=== PATIENT | female | born 1980 | race Caucasian/White ===

== ENCOUNTER → 2020-11-20 07:29 | Outpatient (CLI) | payer OTHER, SELFPAY ==
[2020-11-20 17:04] LABS: SARS-CoV-2 RNA PCR Negative
== END ==
PROVIDERS: PCP Family Medicine; Visit Provider Surgery
DX: Z01.812 Encounter for preprocedural laboratory examination (principal); Z20.822 Contact with and (suspected) exposure to COVID-19
CPT/HCPCS: C9803; U0003; U0005

== ENCOUNTER 2020-11-22 01:11 | Day surgery (SDC) | payer OTHER, SELFPAY ==
[2020-11-09 14:25] VITALS: BMI 29.0
--- NOTE | 2020-11-13 15:51 | PC.NURSE ---
Pt denies any changes in health history or medications since initial interview. New Covid date/time and pre-op instructions reviewed with pt. Pt denies any questions at this time.
--- NOTE | 2020-11-22 12:45 | WPDANESEPPF ---
Anes - Initial Pre Proc Eval Procedure: Operation Date: 11/22/20 14:30 Proposed Procedures p Excisional Biopsy of Right Lower Quadrant Back Mass Times Two - Aida Kendall MD Date/Time: 11/22/20 12:45 Surgeon: Aida Kendall MD Pre Op Diagnosis: right lower back mass x2 Patient Data Age: 40 Gender: F Height: 5 ft 6 in Weight: 81.65 kg Allergies Allergy/AdvReac Type Severity Reaction Status Date / Time Penicillins Allergy Intermediate Rash Verified 11/13/20 15:51 Home Medications Medication Instructions Recorded Confirmed Type fluoxetine 20 mg capsule 20 mg PO DAILY 11/07/20 11/13/20 History levonorgestrel 20 mcg/24 hours (6 1 device INTRAUTERINE ONCE 11/07/20 11/13/20 History yrs) 52 mg intrauterine device sumatriptan succinate 50 mg tablet 50 mg PO ONCE PRN 11/07/20 11/13/20 History Patient hx anesthesia problems: none Family hx anesthesia problems: none PMFSH Past Medical History Medical History Anxiety Depression Migraine Surgical History Surgical History History of breast implant History of colonoscopy Family History Family History Father Hypertension Mother Diabetes mellitus Hypertension Grandparent Carcinoma of colon Cerebrovascular accident Cancer of kidney Social History Social History Smoking status: Never smoker Alcohol intake: current Drinks per week: 3 Substance use: never Substance use type: does not use Living arrangements: with family Spiritual care concerns: No Anes - Eval Final PreProcedure Day of Procedure 11/22/20 12:45 Patient weight: overweight Heart: regular rate and rhythm Lungs: clear to auscultation Airway: Mallampati scale class II Neurological: alert and oriented Last oral intake: >/= 8 hours ASA classification: II Emergent: no Anesthetic plan: proceed Anesthesia type and monitoring: general GIVS and standard monitoring Informed Consent: The patient's anesthetic plan and its attendant risks and benefits were discussed with the patient/family/POA. Questions were solicited and answers provided to the satisfaction of the patient/family/POA.
--- NOTE | 2020-11-22 12:47 | WPDHPUPDATE1 ---
History and Physical Update Update Date/Time: 11/22/20 12:47 History and Physical has been reviewed, including an updated exam of the patient. There are NO changes in the patient's condition. Risks, benefits, and alternatives have been discussed and questions answered. Patient agrees to proceed with procedure.
[2020-11-22 13:00] VITALS: BP 118/81; PULSE 70; RESP 16; TEMP 36.9; O2SAT 100; BMI 29.2
[2020-11-22] MEDS: LACTATED RINGERS 1,000 ML 30 ML IV CONT (13:05)
[2020-11-22] MEDS: ceFAZolin 2 GM/D5W 50 ML 2 GM/50 ML BAG IVPB (13:55)
[2020-11-22] MEDS: BUPIVACAINE/EPINEPHRINE 0.5% 10 ML VIAL 50 ML INFILTRATE (14:28)
[2020-11-22] MEDS: KETOROLAC 30 MG/ML VIAL (*BKC) IV PUSH (14:30)
--- NOTE | 2020-11-22 14:36 | PM.PROC ---
Procedure Note - Detailed Date of procedure: 11/22/20 Pre-op diagnosis: right lower back mass x2 right lower back mass Post-op diagnosis: other (intramuscular right lower back mass) Procedure performed: excisional biopsy right lower intramuscular back mass measuring approximately 7 x 5 cm Description of procedure: The patient was brought into the operating room and placed in the lateral position. After adequate induction of mac anesthesia the patient was prepped and draped in the normal sterile fashion. Time-out then done to patient's identity as well as the procedure being performed. Began by localizing the area in and around this mass. I then made a incision over the mass using a 15 blade scalpel. I then carried the incision through the dermis into the subcutaneous tissue. Normal subcutaneous fat was noted. Upon further dissection, there was noted to be a well-circumscribed mass/lipoma that was intramuscular in nature. Using very careful dissection, I was able to remove this mass in full. The measurements were approximately 7 x 5 cm. Once the mass was removed, I washed out the cavity. No other pathology was noted. I then closed the subcutaneous tissue with 3.0 Vicryl suture. The skin was closed with 4 Monocryl subcuticular suture. Dermabond was placed on the wound. The patient tolerated the procedure well and was alert and awake in the operating room postoperatively. She will be sent to the recovery room in stable condition. Surgeon: Aida Kendall MD Estimated blood loss (mL): 10 Drains: No Packing: No Pathology: yes Complications: No immediate complications Condition: stable Disposition: PACU Findings: intramuscular right lower back mass
[2020-11-22 14:50] VITALS: BP 106/69; PULSE 74; RESP 16; O2SAT 99
[2020-11-22 15:15] VITALS: BP 114/78; PULSE 69; RESP 14
== END 2020-11-22 16:00 | disposition home or self-care (01) ==
PROVIDERS: PCP Family Medicine; Visit Provider Surgery
PROC: (CPT 21933; principal; 2020-11-22 14:30)
DX: D17.1 Benign lipomatous neoplasm of skin and subcutaneous tissue of trunk (principal); F41.8 Other specified anxiety disorders
CPT/HCPCS: 21933; 88304; J0131; J0690; J1100; J1885; J2250; J2405; J2704; J3010; J7120